=== PATIENT | male | born 1945 | race Two or more races ===

== ENCOUNTER 2020-02-14 06:20 | Day surgery (SDC) | payer MEDICARE, OTHER ==
[~2020-02-14] VITALS: Ht 170.2 cm; Wt 65.9 kg
[2020-02-14] MEDS ORDERED: MIDAZOLAM HCL 2 MG/2 ML VIAL ONE (08:12)
[2020-02-14] MEDS ORDERED: FentaNYL CITRATE-PF 100 MCG/2 ML VIAL ONE (08:13)
[2020-02-14] MEDS ORDERED: SODIUM CHLORIDE 0.9% 1,000 ML IV ONE (08:15)
[2020-02-14] MEDS ORDERED: MethylPREDNISolone SOD SUCC 125 MG/2 ML VIAL IVP ONE (09:00)
[2020-02-14] MEDS ORDERED: OXYGEN THERAPY IH SCH (20:00)
== END 2020-02-14 10:35 | disposition home or self-care (01) ==
LOC: SURGERY 06:20
PROVIDERS: ATTEND Internal Medicine Critical Care Medicine
DX: J38.4 Edema of larynx (principal); B37.0 Candidal stomatitis; E78.00 Pure hypercholesterolemia, unspecified; Z79.899 Other long term (current) drug therapy
CPT/HCPCS: 31623; 31624; 71045; 87015; 87070; 87101; 87205; 87206; 87220; 87426; 88108; 88312; J2250; J3010

== ENCOUNTER 2022-12-16 06:37 | Day surgery (SDC) | payer MEDICARE, OTHER ==
[~2022-12-16] VITALS: Ht 167.6 cm; Wt 63.6 kg
[2022-12-16] MEDS ORDERED: SODIUM CHLORIDE 0.9% 1,000 ML ONE (07:23)
[2022-12-16] MEDS ORDERED: SODIUM CHLORIDE 0.9% 1,000 ML IV ONE (07:45)
[2022-12-16] MEDS ORDERED: OMEG10005 PO (07:46)
[2022-12-16] MEDS ORDERED: FLUT1BLS15 (07:46)
[2022-12-16] MEDS ORDERED: TAMS-13 PO (07:46)
[2022-12-16] MEDS ORDERED: LOSA-382 PO (07:46)
[2022-12-16] MEDS ORDERED: ASPI-1450 PO (07:46)
[2022-12-16] MEDS ORDERED: AMLO-257 PO (07:46)
[2022-12-16] MEDS ORDERED: FENO54TA7 PO (07:46)
[2022-12-16] MEDS ORDERED: ATOR10TA PO (07:46)
[2022-12-16] MEDS ORDERED: FentaNYL CITRATE PF 100 MCG/2 ML VIAL ONE (08:09)
[2022-12-16] MEDS ORDERED: MIDAZOLAM HCL 2 MG/2 ML VIAL ONE (08:09)
[2022-12-16 09:15] VITALS: PULSE 74; RESP 14; O2SAT 100
[2022-12-16] MEDS ORDERED: MethylPREDNISolone SOD SUCC 125 MG/2 ML VIAL IVP ONE (09:15)
== END 2022-12-16 11:00 | disposition home or self-care (01) ==
LOC: SURGERY 06:37
PROVIDERS: ATTEND Internal Medicine Critical Care Medicine
DX: J38.4 Edema of larynx (principal); B37.0 Candidal stomatitis; F17.210 Nicotine dependence, cigarettes, uncomplicated; Z98.890 Other specified postprocedural states; I10 Essential (primary) hypertension; Z79.899 Other long term (current) drug therapy
CPT/HCPCS: 31623; 88112; 87206; 87101; 87220; 87070; 31624; 94640; 71045; 87015; J3010; J2250; J2930; J7030

== ENCOUNTER 2024-04-29 06:59 | Day surgery (SDC) | payer MEDICARE, OTHER ==
[~2024-04-29] VITALS: Ht 167.6 cm; Wt 77.2 kg
[~2024-04-29 06:59] MED LIST: AMLO-257 PO; ASPI-1450 PO; ATOR10TA PO; FENO54TA7 PO; FLUT1BLS15; LOSA-382 PO; OMEG100014 PO; SODIUM CHLORIDE 0.9% 1,000 ML ONE; TAMS0.4C94 PO
[2024-04-29] MEDS ORDERED: LIDOCAINE 2% 11 ML JELLY TP ONE (07:00)
[2024-04-29] MEDS ORDERED: ALBUTEROL SULFATE 2.5 MG/0.5 ML NEB SOLUTION NEB ONE (07:00)
[2024-04-29] MEDS ORDERED: BENZOCAINE 20% 50 MCG/SPRAY 57 GM TP ONE (07:00)
[2024-04-29] MEDS ORDERED: LIDOCAINE 4% 50 ML SOLUTION TP ONE (07:00)
[2024-04-29] MEDS ORDERED: FentaNYL CITRATE PF 100 MCG/2 ML VIAL ONE (07:39)
[2024-04-29] MEDS ORDERED: MIDAZOLAM HCL 2 MG/2 ML VIAL ONE (07:39)
[2024-04-29] MEDS ORDERED: FERR-82 PO (08:13)
[2024-04-29 09:55] VITALS: PULSE 87; RESP 16; O2SAT 98
[2024-04-29] MEDS ORDERED: MethylPREDNISolone SOD SUCC 125 MG/2 ML VIAL ONE (09:58)
[2024-04-29] MEDS: MethylPREDNISolone SOD SUCC 125 MG/2 ML VIAL IVP ONE (10:33)
[2024-04-29] MEDS: SODIUM CHLORIDE 0.9% 1,000 ML IV ONE (10:34)
== END 2024-04-29 11:25 | disposition home or self-care (01) ==
LOC: SURGERY 06:59
PROVIDERS: ATTEND Internal Medicine Critical Care Medicine
DX: R05.3 Chronic cough (principal); R04.2 Hemoptysis; R49.0 Dysphonia; J47.9 Bronchiectasis, uncomplicated; J38.4 Edema of larynx; B37.0 Candidal stomatitis; I10 Essential (primary) hypertension; J45.909 Unspecified asthma, uncomplicated; H40.9 Unspecified glaucoma; Z79.899 Other long term (current) drug therapy
CPT/HCPCS: 31623; 87206; 87101; 87220; 87070; 88108; 31624; 94640; 71045; 87015; J3010; J2250; J2919; J7030; J7613; Z7610